=== PATIENT | female | born 1965 | race Caucasian/White ===

== ENCOUNTER 2017-09-07 13:22 | Outpatient (CLI) | payer BC ==
[2017-09-07] MEDS ORDERED: Iopamidol 370 76% 100 ML VIAL ONE (15:45)
--- NOTE | 2017-09-07 17:43 | CT ---
ABDOMEN AND PELVIC CT SCAN WITH AND WITHOUT IV CONTRAST: History: 52-year-old female with hematuria without pain, benign essential hematuria. FINDINGS: With and without contrast CT examination of the abdomen with multiphase imaging. The lung bases are clear. Status post cholecystectomy. Some borderline common duct and central intra hepatic ductal dilatation. The visualized pancreas, spleen, and adrenal glands are unremarkable. No renal mass or acute obstruction. No evidence for a bladder mass. The uterus is minimally enlarged and nodular, evidence for some multiple intrauterine fibroids, probably up to approximately 3 cm in size. Partially visualized normal appendix. Unremarkable adnexa. Minimal colonic diverticulosis wit hout diverticulitis. IMPRESSION: No evidence of renal calculus or acute GE obstruction. No solid or cystic renal mass or bladder mass . Minimally enlarged nodular uterus concerning for intrauterine fibroids up to approximately 3 cm. P robable small hiatal hernia. Status post cholecystectomy. POS: C
== END 2017-09-07 13:23 | disposition home or self-care (01) ==
LOC: CT 13:22
PROVIDERS: ATTEND Urology
DX: R31.1 Benign essential microscopic hematuria (principal)
CPT/HCPCS: 74178

== ENCOUNTER 2017-11-02 06:48 | Emergency (ER) | payer BC ==
[2017-11-02 07:38] LABS: #Eosinphils 0.2 thou/uL (0.0-0.7); #Lymphocytes 1.7 thou/uL (1.20-3.40); #Monocytes 0.5 thou/uL (0.11-0.59); #Neutrophils 7.1 thou/uL (1.40-6.50); %Basophils 0.3 % (0.0-1.0); %Eosinophils 1.9 % (0.0-10.0); %Monocytes 5.3 % (0.0-10.0); %Neutrophils 74.6 % (42.0-75.0); Hemoglobin 14.2 g/dL (12.0-16.0); Mean Corpuscular Volume 96.8 fl (81.0-99.0); Mean Platelet Volume 7.3 fL (7.4-10.4); Platelet Count 315 thou/uL (130-400); RBC Distribution Width 11.7 % (11.5-14.5); Red Blood Cell (RBC) Count 4.44 mill/uL (4.20-5.40); White Blood Cell (WBC) Count 9.5 thou/uL (4.8-10.8)
--- NOTE | 2017-11-02 07:42 | RAD ---
PA AND LATERAL OF THE CHEST: INDICATION: Dyspnea with shortness of breath and cough and congestion for 2 weeks. FINDINGS: No focal consolidation is evident. Heart size and pulmonary vasculature are normal. There are víctor cystectomy clips within the right upper quadrant. No pleural effusion or pneumothorax is evident. N o acute osseous abnormality is evident. IMPRESSION: No acute cardiopulmonary abnormality. POS: BARON
[2017-11-02 07:56] LABS: ALT (SGPT) 18 U/L (8-55); AST (SGOT) 19 U/L (5-34); Albumin 4.2 g/dL (3.5-5.0); Alkaline Phosphatase 102 U/L (40-150); Anion Gap 16 mmol/L (10-20); BUN (Urea Nitrogen) 14 mg/dL (9.8-20.1); Bilirubin, Total 0.7 mg/dL (0.2-1.2); CK (CPK) 77 U/L (29-168); Calc. Creatinine Clearance 0 mL/min (70-130); Calcium 9.6 mg/dL (7.8-10.44); Carbon Dioxide 21 mmol/L (22-29); Chloride 104 mmol/L (98-107); Estimated GFR-MDRD 89; Globulin 3.2 g/dL (2.4-3.5); Glucose 101 mg/dL (70-105); Potassium 4.1 mmol/L (3.5-5.1); Protein, Total 7.4 g/dL (6.0-8.3); Sodium 137 mmol/L (136-145)
[2017-11-02 08:06] LABS: CKMB 1.5 ng/mL (0-6.6); Troponin I Less than 0.010 ng/mL (< 0.028)
== END 2017-11-02 09:18 | disposition home or self-care (01) ==
LOC: ERS 06:48
DX: R42 Dizziness and giddiness (principal); F41.9 Anxiety disorder, unspecified
CPT/HCPCS: 36415; 71046; 80053; 82550; 82553; 84484; 85025; 93005

== ENCOUNTER 2017-11-23 12:44 | Outpatient (CLI) | payer BC | END 2017-11-23 12:45 | disposition home or self-care (01) | LOC: BICMAMMO 12:44 | PROVIDERS: ATTEND Obstetrics & Gynecology | DX: Z12.31 Encounter for screening mammogram for malignant neoplasm of breast (principal) | CPT/HCPCS: 77063; 77067 ==

== ENCOUNTER 2018-11-30 13:47 | Outpatient (CLI) | payer BC | END 2018-11-30 13:48 | disposition home or self-care (01) | LOC: BICMAMMO 13:47 | PROVIDERS: ATTEND Obstetrics & Gynecology | DX: Z12.31 Encounter for screening mammogram for malignant neoplasm of breast (principal) | CPT/HCPCS: 77063; 77067 ==